=== PATIENT | female | born 1975 | race African-American/Black ===

== ENCOUNTER 2019-03-11 17:53 | Emergency (ER) | payer OTHER ==
[2015-05-09 16:58] VITALS: BP 147/100
[~2019-03-11] VITALS: Ht 157.5 cm; Wt 96.1 kg
--- NOTE | 2019-03-11 18:18 | EKG ---
[address] [address] Test Date: 2019-03-11 Test Time: 18:13:43 Pat Name: OLEG MAYER Department: Room: Gender: F [employer]: : 1975 Requested By: YAIMA MIRANDA Order Number: [id number] Reading MD: Measurements Intervals [place] Rate: 82 P: 38 AR: 150 QRS: 4 QRSD: 78 T: 10 QT: 380 QTc: 447 Interpretive Statements SINUS RHYTHM NORMAL ECG RI6.01 No previous ECG available for comparison
--- NOTE | 2019-03-13 07:28 | PHYS DOC ---
Past History Past Medical History: No Pertinent History Past Surgical History: No Surgical History Alcohol Use: Occasionally Drug Use: None Adult General Chief Complaint Chief Complaint: NAUSEA/VOMITING/DIARRHEA HPI HPI Patient is a 41-year-old female presents with multiple medical complaints. Patient states she's been perimenopausal with the past 3 years and has noticed that she is dizzy with throughout the day and has been so for the past several weeks. Patient reports multiple episodes earlier this afternoon while at work comp care, to the emergency department. She is currently asymptomatic. Blood pressure noted to be elevated. However, patient is not currently on blood pressure medication has not follow-up with a primary care provider the past several years because she feels as though she never gets sick. Patient denies headache, blurred vision, palpitations, chest pain, shortness of breath. Denies leg pain or swelling. No other acute symptoms or complaints. [] Review of Systems Review of Systems Symptoms as per history of present illness. All other review symptoms are negative. All other systems were reviewed and found to be within normal limits, except as documented in this note. Allergies Allergies Allergies Coded Allergies Type Severity Reaction Last Updated Verified No Known Drug Allergies 05/09/15 No Physical Exam Physical Exam Constitutional: Well developed, well nourished, no acute distress, non-toxic appearance. [] HENT: Normocephalic, atraumatic, bilateral external ears normal, oropharynx moist, no oral exudates, nose normal. [] Eyes: PERRLA, EOMI, conjunctiva normal, no discharge. [] Neck: Normal range of motion, no tenderness, supple, no stridor. [] Cardiovascular:Heart rate regular rhythm, no murmur [] Lungs & Thorax: Bilateral breath sounds clear to auscultation [] Abdomen: Bowel sounds normal, soft, no tenderness, no masses, no pulsatile masses. [] Skin: Warm, dry, no erythema, no rash. [] Back: No tenderness, no CVA tenderness. [] Extremities: No tenderness, no cyanosis, no clubbing, ROM intact, no edema. [] Neurologic: Alert and oriented X 3, normal motor function, normal sensory function, no focal deficits noted. [] Psychologic: Affect normal, judgement normal, mood normal. [] Current Patient Data Vital Signs Vital Signs Date Time Temp Pulse Resp B/P (MAP) Pulse Ox O2 Delivery O2 Flow Rate FiO2 1/26/20 17:53 98.0 87 16 153/100 (117) 97 Room Air EKG EKG [] Radiology/Procedures Radiology/Procedures [] Course & Med Decision Making Course & Med Decision Making Pertinent Labs and Imaging studies reviewed. (See chart for details) [No symptoms in the ED. Recommend Expectant management with PCP follow-up. Return precautions reviewed. Patient verbalizes understanding agreement discharge instructions prior to departure.] Dragon Disclaimer Dragon Disclaimer This electronic medical record was generated, in whole or in part, using a voice recognition dictation system. Departure Departure: Impression: Primary Impression: Elevated blood pressure reading Additional Impression: Dizziness Disposition: 01 HOME, SELF-CARE Condition: STABLE Patient Instructions: Dizziness, [id number] Additional Instructions: Please follow-up with local primary care physician for primary care screening and reactive evaluation. Please check blood pressures 2-3 times a week and record readings. Return to the ED if new or worsening symptoms. Problem Qualifiers YAIMA MIRANDA DO Mar 13, 2019 07:28
== END 2019-03-11 19:03 | disposition home or self-care (01) ==
LOC: ER 17:53
DX: R03.0 Elevated blood-pressure reading, without diagnosis of hypertension (principal); R42 Dizziness and giddiness
CPT/HCPCS: 93005; 99283